=== PATIENT | female | born 1965 | race Caucasian/White ===

== ENCOUNTER 2023-09-19 18:12 | Inpatient (IN) | payer OTHER ==
[~2023-09-19] VITALS: Ht 177.8 cm; Wt 155.6 kg
[2023-09-19 18:21] VITALS: TEMP 98.1
[2023-09-19 18:45] LABS: BASOPHILS % 0.3 % (0.0-1.0); EOSINOPHILS # (AUTO) 0.4 (0.0-0.4); EOSINOPHILS % 2.8 % (0.0-6.0); HEMATOCRIT 42.3 % (34.2-44.1); HEMOGLOBIN 13.7 g/dL (12.0-16.0); LYMPHOCYTES # (AUTO) 2.5 (1.0-3.2); MEAN CORPUSCULAR HEMOGLOBIN 32.5 pg (28-32); MEAN CORPUSCULAR HGB CONC 32.4 g/dL (31-35); MEAN CORPUSCULAR VOLUME 100.2 fL (81-99); MONOCYTES # (AUTO) 0.5 (0.2-0.8); MONOCYTES % 3.6 % (4.4-11.3); NEUTROPHILS # (AUTO) 9.2 (2.1-6.9); NEUTROPHILS % 72.7 % (38.7-80.0); PLATELET COUNT 321 x10e3/uL (140-360); RED BLOOD COUNT 4.22 x10e6/uL (3.6-5.1); RED CELL DISTRIBUTION WIDTH 16.7 % (11.7-14.4); WHITE BLOOD COUNT 12.69 x10e3/uL (4.8-10.8)
[2023-09-19 19:02] LABS: ALBUMIN 3.5 g/dL (3.5-5.0); ALBUMIN/GLOBULIN RATIO 0.9 (0.8-2.0); ANION GAP 16.2 mmol/L (8-16); BILIRUBIN,TOTAL 0.4 mg/dL (0.2-1.2); CALCIUM 9.6 mg/dL (8.4-10.2); CREATININE, SERUM 1.19 mg/dL (0.57-1.11); TOTAL PROTEIN 7.4 g/dL (6.5-8.1)
[2023-09-19 19:03] LABS: POTASSIUM 3.2 mmol/L (3.5-5.1)
[2023-09-19 20:00] VITALS: BP 129/69; PULSE 89; RESP 18; TEMP 98.2; O2SAT 98
[2023-09-19] MEDS: Morphine 4mg INJECTION 4 MG/ML INJ IV PRN (20:05)
[2023-09-19] MEDS: SODIUM CHLORIDE 0.9% 1000ML 1,000 ML IV SCH (20:05)
[2023-09-19] MEDS: ONDANSETRON HCL INJ 2MG/ML 2ML 2 MG/ML VIAL IV PRN (20:05)
[2023-09-19 20:51] VITALS: PULSE 88; RESP 16
[2023-09-19 21:20] VITALS: BP 129/69; PULSE 89; RESP 18; TEMP 98.2; O2SAT 98
[2023-09-19 21:30] VITALS: BP 129/69; PULSE 89; RESP 18; TEMP 98.2; O2SAT 98
[2023-09-19] MEDS ORDERED: ISOSORBIDE MONO30 MG PO (22:23)
[2023-09-19] MEDS ORDERED: FUROSEMIDE40 MG PO (22:23)
[2023-09-19] MEDS ORDERED: LINZESS145 MCG PO (22:23)
[2023-09-19] MEDS ORDERED: BUPROPION XL300 MG PO (22:23)
[2023-09-19] MEDS ORDERED: HYDROXYZINE HCL50 MG PO (22:23)
[2023-09-19] MEDS ORDERED: LAMOTRIGINE200 MG PO (22:23)
[2023-09-19] MEDS ORDERED: GABAPENTIN600 MG PO (22:23)
[2023-09-19] MEDS ORDERED: QUETIAPINE FUM400 MG PO (22:23)
[2023-09-19] MEDS ORDERED: SPIRONOLACTONE25 MG PO (22:23)
[2023-09-19] MEDS ORDERED: CYCLOBENZAPRINE10 MG PO (22:23)
[2023-09-19] MEDS ORDERED: DICLOFENAC SODI75 MG PO (22:23)
[2023-09-19] MEDS ORDERED: HYDROXYZINE HCL25 MG PO (22:23)
[2023-09-19] MEDS ORDERED: BUPROPION HCL200 MG PO (23:15)
[2023-09-19] MEDS ORDERED: HYDROXYZINE HCL 25 MG TAB PO PRN (23:30)
[2023-09-19] MEDS: QUETIAPINE FUMARATE 100 MG TAB PO SCH (23:51)
[2023-09-20] VITALS (8 sets, daily range): BP systolic 106–144; BP diastolic 56–87; PULSE 71–96; RESP 16–18; TEMP 96.8–98.2; O2SAT 94–96
[2023-09-20 06:03] LABS: BASOPHILS % 0.3 % (0.0-1.0); EOSINOPHILS # (AUTO) 0.3 (0.0-0.4); EOSINOPHILS % 3.7 % (0.0-6.0); HEMATOCRIT 40.5 % (34.2-44.1); HEMOGLOBIN 12.8 g/dL (12.0-16.0); LYMPHOCYTES % 22.4 % (18.0-39.1); MEAN CORPUSCULAR HEMOGLOBIN 32.4 pg (28-32); MEAN CORPUSCULAR HGB CONC 31.6 g/dL (31-35); MEAN CORPUSCULAR VOLUME 102.5 fL (81-99); MONOCYTES # (AUTO) 0.5 (0.2-0.8); MONOCYTES % 5.7 % (4.4-11.3); NEUTROPHILS % 67.3 % (38.7-80.0); PLATELET COUNT 276 x10e3/uL (140-360); RED BLOOD COUNT 3.95 x10e6/uL (3.6-5.1); RED CELL DISTRIBUTION WIDTH 16.6 % (11.7-14.4); WHITE BLOOD COUNT 8.91 x10e3/uL (4.8-10.8)
[2023-09-20 06:47] LABS: ANION GAP 13.5 mmol/L (8-16); BILIRUBIN,TOTAL 0.4 mg/dL (0.2-1.2); CALCIUM 8.8 mg/dL (8.4-10.2); CREATININE, SERUM 1.06 mg/dL (0.57-1.11); POTASSIUM 3.5 mmol/L (3.5-5.1); TOTAL PROTEIN 6.1 g/dL (6.5-8.1)
[2023-09-20] MEDS: FUROSEMIDE 40 MG TAB PO SCH (08:50)
[2023-09-20] MEDS: GABAPENTIN 300 MG CAP PO SCH (08:50)
[2023-09-20] MEDS: LAMOTRIGINE 100 MG TAB PO SCH (08:50)
[2023-09-20] MEDS: ISOSORBIDE MONONITRATE 30 MG TAB CR PO SCH (08:50)
[2023-09-20] MEDS: HYDROXYZINE HCL 25 MG TAB PO SCH (08:50)
[2023-09-20] MEDS: SPIRONOLACTONE 25 MG TAB PO SCH (08:50)
[2023-09-20] MEDS: BUPROPION HCL 200 MG PO SCH (08:51)
[2023-09-20] MEDS: LINACLOTIDE 145 MCG CAPSULE PO SCH (08:51)
[2023-09-20] MEDS: DICLOFENAC SOD 50 MG TAB PO SCH (10:48)
[2023-09-20] MEDS: CYCLOBENZAPRINE HCL 10 MG TAB PO SCH (20:51)
[2023-09-21] VITALS (10 sets, daily range): BP systolic 106–145; BP diastolic 56–96; PULSE 79–98; RESP 18–20; TEMP 97.7–98.2; O2SAT 93–100
[2023-09-21] MEDS: CEFTRIAXONE 2 GM in SODIUM CHLORIDE 0.9% 100 ML IV SCH (08:40)
[2023-09-21] MEDS: ROPINIROLE HCL 2 MG TAB PO SCH (21:24)
[2023-09-22] VITALS (10 sets, daily range): BP systolic 95–142; BP diastolic 57–93; PULSE 80–92; RESP 16–20; TEMP 97.7–98.9; O2SAT 95–100
[2023-09-22] MEDS ORDERED: ONDANSETRON HCL 4 MG ORAL DISINTEGRATING TAB PO PRN (18:00)
[2023-09-22] MEDS ORDERED: DICLOFENAC SOD 50 MG TAB PO PRN (18:15)
[2023-09-23] VITALS (9 sets, daily range): BP systolic 116–155; BP diastolic 66–93; PULSE 77–89; RESP 16–19; TEMP 97.7–98.7; O2SAT 95–99
[2023-09-23] MEDS ORDERED: SODIUM CHLORIDE 0.9% 100 ML ONE (07:48)
[2023-09-23 17:06] LABS: CALCIUM 9.2 mg/dL (8.4-10.2); CREATININE, SERUM 0.9 mg/dL (0.57-1.11)
[2023-09-24] VITALS: BP 122/64; PULSE 102; RESP 18; TEMP 98.3; O2SAT 96
[2023-09-24 04:00] VITALS: BP 112/61; PULSE 84; RESP 18; TEMP 98.3; O2SAT 96
[2023-09-24 06:47] VITALS: PULSE 92; RESP 20; O2SAT 95
[2023-09-24 07:55] VITALS: BP 118/67; PULSE 83; RESP 17; TEMP 97.6; O2SAT 97
[2023-09-24 08:45] VITALS: BP 118/67; PULSE 83; RESP 17; TEMP 97.6; O2SAT 97
[2023-09-24 11:01] VITALS: BP 118/87; PULSE 79; RESP 17; TEMP 97.9; O2SAT 95
[2023-09-24] MEDS ORDERED: CEPHALEXIN500 M1 PO (15:36)
[2023-09-24] MEDS ORDERED: ROPINIROLE HCL1 MG PO (15:36)
[2023-09-24] MEDS ORDERED: ONDANSETRON ODT4 MG PO (15:36)
[2023-09-24] MEDS ORDERED: REQUIP PO (16:12)
== END 2023-09-24 16:21 | disposition home or self-care (01) | DRG 603 ==
LOC: ER 18:30 → ERHOLD 19:40 → MED/SURG2 21:32 → OBSVTOIN 09-20 21:57
PROVIDERS: ADMIT Internal Medicine; ATTEND Internal Medicine
PROC: 02HV33Z Insertion of Infusion Device into Superior Vena Cava, Percutaneous Approach (ICD-10-PCS; principal; 2023-09-20)
DX: L03.116 Cellulitis of left lower limb (principal); N17.9 Acute kidney failure, unspecified; E66.01 Morbid (severe) obesity due to excess calories; Z68.42 Body mass index [BMI] 45.0-49.9, adult; I87.2 Venous insufficiency (chronic) (peripheral); Z99.81 Dependence on supplemental oxygen; N18.2 Chronic kidney disease, stage 2 (mild); R60.0 Localized edema; F32.A Depression, unspecified; I89.0 Lymphedema, not elsewhere classified; J44.9 Chronic obstructive pulmonary disease, unspecified; Z11.52 Encounter for screening for COVID-19; G89.4 Chronic pain syndrome; F17.200 Nicotine dependence, unspecified, uncomplicated
CPT/HCPCS: 36415; 36568; 80048; 80053; 85025; 93306; 93971; 94799; 99252; 99284; G0378; J0696; J2270; J2405; J2543; J3410; J7030; J7050; U0002